=== PATIENT | female | born 1950 | race Caucasian/White ===

== ENCOUNTER 2018-09-12 06:34 | Day surgery (SDC) | payer OTHER ==
[~2018-09-12 06:34] MED LIST: PNEU16DI2; PREDISONE PO
== END 2018-09-12 15:05 | disposition home or self-care (01) ==
LOC: CIR.AMB 06:34
DX: M75.111 Incomplete rotator cuff tear or rupture of right shoulder, not specified as traumatic (principal); M75.21 Bicipital tendinitis, right shoulder; M19.011 Primary osteoarthritis, right shoulder; M06.811 Other specified rheumatoid arthritis, right shoulder; M94.211 Chondromalacia, right shoulder